=== PATIENT | female | born 1945 | race Caucasian/White ===

== ENCOUNTER 2017-04-03 13:54 | Emergency (ER) | payer MEDICARE, BC ==
[2017-04-03 14:14] VITALS: BP 159/77
[2017-04-03] MEDS ORDERED: Ondansetron 4 MG/2 ML SDV IVPUSH ONE (14:23)
[2017-04-03] MEDS ORDERED: HYDROmorphone 0.5 MG/0.5 ML Syringe IVPUSH ONE ×2 (14:23→15:32)
--- NOTE | 2017-04-03 14:23 | EDM.PDOC ---
ED HPI GENERAL MEDICAL PROBLEM - General Chief Complaint: Trauma Stated Complaint: FALL/HIT HEAD/ARM PAIN/RIB PAIN Time Seen by Provider: 04/03/17 14:18 Source of Information: Reports: Patient, Family (friend) History Limitations: Reports: No Limitations - History of Present Illness INITIAL COMMENTS - FREE TEXT/NARRATIVE: 71-year-old female currently visiting from [facility]. She is out in [place] and well entering a restaurant tripped and fell sideways down to concrete stairs landing hard on her left ribs and striking left side of her head hard on the concrete floor. She was not knocked out but was certainly dazed for a period of time. She also fell on her outstretched left hand and has pain along the ulnar aspect of her hand or wrist radially upped her elbow on the left side. She states she scraped up her left knee but she is able to walk with no pain in either hip or knee or low back. It hurts like active take a deep breath. Of note the patient is on Xarelto because she's had 2 previous TIAs due to intermittent atrial fibrillation. Onset: Today Onset Date: 04/03/17 Onset Time: 13:00 Duration: Hour(s):, Getting Worse Location: Reports: Head, Chest Quality: Reports: Ache, Stabbing (Sharp and stabbing pain in her left chest wall.), Throbbing (Throbbing in her left wrist and forearm.), Other (Pressure throbbing in her left parietal scalp.) Severity: Moderate Improves with: Reports: None Worsens with: Reports: Other (Deep breathing and certain movements.) Context: Reports: Trauma (Fell down to concrete stairs landing on concrete sidewalk striking the left side of her head and her left side of her chest wall in falling on outstretched left hand injuring wrist and forearm. Also scraped up her left knee.) Associated Symptoms: Reports: Chest Pain. Denies: Confusion, Cough, cough w sputum, Diaphoresis, Fever/Chills, Loss of Appetite, Malaise, Nausea/Vomiting, Rash, Shortness of Breath, Syncope, Weakness, Other Treatments HEALTH CARE SPECIALIST: Reports: Other (see below) (None.) Left Hand Pain Score (Numeric/FACES): 7 Left Chest Pain Score (Numeric/FACES): 10 Left Head Pain Score (Numeric/FACES): 10 - Related Data Allergies Allergy/AdvReac Type Severity Reaction Status Date / Time No Known Allergies Allergy Verified 04/03/17 14:07 Home Meds: Home Meds Cholecalciferol (Vitamin D3) [Vitamin D3] 2,000 unit PO DAILY 04/03/17 [History] Flecainide Acetate 50 mg PO BID 04/03/17 [History] Hydrochlorothiazide 25 mg PO DAILY 04/03/17 [History] Losartan [Cozaar] 50 mg PO BID 04/03/17 [History] Metoprolol Succinate [Toprol XL] 50 mg PO BID 04/03/17 [History] Omeprazole Magnesium [Prilosec Otc] 40 mg PO DAILY 04/03/17 [History] Pravastatin [Pravachol] 20 mg PO BEDTIME 04/03/17 [History] Rivaroxaban [Xarelto] 20 mg PO DAILY 04/03/17 [History] oxyCODONE HCl/Acetaminophen [Percocet 5-325 mg Tablet] 1 - 2 each PO Q4H PRN # 20 tablet 04/03/17 [Rx] Past Medical History Cardiovascular History: Reports: Afib (Intermittently. This is the reason that she is on Xarelto.), High Cholesterol, Hypertension Musculoskeletal History: Reports: Neck Pain, Chronic, Osteoarthritis, Other ( See Below) Neurological History: Reports: Headaches, Chronic (2 secondary to being in intermittent atrial fibrillation chronic occipital head is headaches due to degenerative cervical disc disease.), TIA - Past Surgical History GI Surgical History: Reports: Appendectomy Musculoskeletal Surgical History: Reports: Hip Replacement (Left side right side ), Knee Replacement Social & Family History - Living Situation & Occupation Occupation: Retired Review of Systems - Review of Systems Review Of Systems: See Below Constitutional: Reports: No Symptoms Eyes: Reports: No Symptoms Ears: Reports: No Symptoms Nose: Reports: No Symptoms Mouth/Throat: Reports: No Symptoms Respiratory: Reports: Pleuritic Chest Pain. Denies: Shortness of Breath, Wheezing, Cough, Sputum Cardiovascular: Reports: Chest Pain (See history present illness) GI/Abdominal: Reports: No Symptoms Genitourinary: Reports: No Symptoms Musculoskeletal: Reports: Other (Arthritis problems. 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 Small hematoma evident.) Neck: Limited Range of Motion, Tender Lateral (Bilaterally.). No: Non-Tender Respiratory/Chest: No Respiratory Distress, Lungs Clear, No Accessory Muscle Use , Other (Splinting respirations on the left side. No subcutaneous emphysema palpable. She injured her left breast but it's not black and blue yet. Pain from rib 429 on the left side. Pain posterior laterally as well) Cardiovascular: Normal Peripheral Pulses, Regular Rate, Rhythm, No Edema, No Gallop, No Murmur Peripheral Pulses: 1+: Posterior Tibial (L), Posterior Tibial (R), Dorsalis Pedis (L), Dorsalis Pedis (R) GI/Abdominal: Normal Bowel Sounds, Soft, Non-Tender, No Organomegaly, No Distention, Other (Some pain on palpation of left upper costal margin in the distribution of the spleen but no palpable spleen.) Back Exam: Normal Inspection, CVA Tenderness (L) (Ribs under this area are very tender to touch as well.). No: CVA Tenderness (R), Decreased Range of Motion, Muscle Spasm Extremities: Other (Has pain along the ulnar aspect of her hand with swelling pain throughout the wrist that travels towards the elbow in the distribution of the ulna. Her shoulder has full en route post range of motion.) Neurological: Alert, Oriented, CN II-XII Intact, Normal Cognition, Normal Gait Psychiatric: Normal Affect, Normal Mood Skin Exam: Warm, Dry, Intact, Normal Color, Other (Has a superficial abrasion over her left patella. Range of motion of the knee and hip is okay.) ED TRAUMA PROCEDURES - Splinting Left Upper Extremity Splint Site: Below elbow left forearm Pre-Procedure NV Status: Normal Post-Procedure NV Status: Normal Splint Material: Fiberglass Splint Design: Other ( ulnar gutter splint with immobilization of fourth and fifth fingers) Applied & Form Fitted By: Provider Provider Post-Splint Application NV Check: NV Status Normal Complications: No Course - Vital Signs Last Recorded V/S: Last Vital Signs Temp 36.7 C 04/03/17 14:07 Pulse 68 04/03/17 16:20 Resp 16 04/03/17 16:20 BP 159/77 H 04/03/17 14:07 Pulse Ox 98 04/03/17 16:20 - Orders/Labs/Meds Labs: Laboratory Tests 04/03/17 04/03/17 Range/Units 14:45 14:45 WBC 7.00 (3.98-10.04) K/mm3 RBC 4.22 (3.98-5.22) M/mm3 Hgb 13.4 (11.2-15.7) gm/L Hct 40.4 (34.1-44.9) % MCV 95.7 H (79.4-94.8) fl MCH 31.8 (25.6-32.2) pg MCHC 33.2 (32.2-35.5) g/dl RDW Std Deviation 44.0 (36.4-46.3) fL Plt Count 250 (182-369) K/mm3 MPV 9.0 L (9.4-12.3) fl Neutrophils % (Manual) 64 H (40-60) % Band Neutrophils % 0 (0-10) % Lymphocytes % (Manual) 28 (20-40) % Atypical Lymphs % 0 % Monocytes % (Manual) 2 (2-10) % Eosinophils % (Manual) 5 (0.7-5.8) % Basophils % (Manual) 1 (0.1-1.2) Platelet Estimate Adequate RBC Morph Comment Normal Sodium 141 (136-145) mEq/L Potassium 3.0 L (3.5-5.1) mEq/L Chloride 105 (98-107) mEq/L Carbon Dioxide 27 (21-32) mEq/L Anion Gap 12.0 (5-15) BUN 16 (7-18) mg/dL Creatinine 1.3 H (0.55-1.02) mg/dL Est Cr Clr Drug Dosing 40.62 mL/min Estimated GFR (MDRD) 40 (>60) mL/min BUN/Creatinine Ratio 12.3 L (14-18) Glucose 130 H (80-115) mg/dL Calcium 9.1 (8.5-10.1) mg/dL Total Bilirubin 0.4 (0.2-1.0) mg/dL AST 19 (15-37) U/L ALT 26 (14-59) U/L Alkaline Phosphatase 68 (46-116) U/L Total Protein 7.4 (6.4-8.2) g/dl Albumin 3.5 (3.4-5.0) g/dl Globulin 3.9 gm/dL Albumin/Globulin Ratio 0.9 L (1-2) Meds: Medications Discontinued Medications Generic Name Dose Route Start Last Admin Trade Name Freq PRN Reason Stop Dose Admin Hydromorphone HCl 0.5 mg 04/03/17 14:23 04/03/17 14:45 Dilaudid IVPUSH 04/03/17 14:24 0.5 mg ONETIME ONE Administration Hydromorphone HCl 0.5 mg 04/03/17 15:32 04/03/17 15:38 Dilaudid IVPUSH 04/03/17 15:33 0.5 mg ONETIME ONE Administration Sodium Chloride 1,000 mls @ 125 mls/hr 04/03/17 14:30 04/03/17 14:42 Normal Saline IV 125 mls/hr ASDIRECTED RD Administration Iopamidol 100 ml 04/03/17 14:29 04/03/17 14:53 Isovue-300 (61%) IVPUSH 04/03/17 14:30 80 ml ONETIME ONE Administration Ondansetron HCl 4 mg 04/03/17 14:23 04/03/17 14:43 Zofran IVPUSH 04/03/17 14:24 4 mg ONETIME ONE Administration Sodium Chloride 10 ml 04/03/17 14:29 04/03/17 14:53 Saline Flush FLUSH 10 ml ONETIME PRN Administration IV FLUSH - Radiology Interpretation Free Text/Narrative:: 71-year-old lady attends the ED after sustaining a fall while visiting in [place]. States she essentially slept well going into a restaurant falling down to concrete stairs and then striking the left side of her head hard on concrete sidewalk. Injured her left chest wall breast and anterior chest from ribs 4-9. No palpable subcutaneous emphysema or crepitus identified. No entry is diminished of the left side due to splinting respirations. She also injured her left wrist ulnar hand and ulna towards the elbow from the fall. She skinned up her left knee but lower extremities have full range of motion and pelvis is intact. Unfortunately the patient is on Xarelto making her more prone to bleeding. She'll therefore have CT head carried out as a small left-sided parietal hematoma. CT of her chest will be done with IV contrast so that I can make sure her spleen and kidney are okay as well. Suspect possible rib fractures. Suspect possible fracture within the wrist or fifth metacarpal in her hand. - Re-Assessments/Exams Free Text/Narrative Re-Assessment/Exam: 04/03/17 15:13 CT of the head is negative for intracranial bleeding or mass effect and no skull fractures. CT of the chest shows no injury to the lung no rib fractures are identified. Visualized portions of the thoracic spine appear to be normal. X-rays of the left forearm reveal significant osteopenia but no fractures in the long bones. I suspect there is a fracture at the base of the right left fifth metacarpal. She will be placed on Ortho glass ulnar gutter splint. 04/03/17 15:31 radiologist concurs. He feels feels is a corner fracture at the base of the left fifth metacarpal bone. I will therefore place her ulnar gutter splint. We will try get the ring off of her fourth finger. 04/03/17 15:48 placed in an ulnar gutter Orthoplast splint. She will be discharged home on Percocet 5-325 mg tabs one or 2 every 4-6 hours for pain relief. Copies of her x-rays were placed on CD-ROM for her to follow-up with physician when she gets back home. Departure - Departure Time of Disposition: 15:49 Disposition: Home, Self-Care 01 Condition: Fair Clinical Impression: Closed head injury without concussion Qualifiers: Encounter type: initial encounter Qualified Code(s): S09.90XA - Unspecified injury of head, initial encounter Contusion of left chest wall Qualifiers: Encounter type: initial encounter Qualified Code(s): S20.212A - Contusion of left front wall of thorax, initial encounter Contusion of left forearm, initial encounter Qualifiers: Encounter type: initial encounter Qualified Code(s): S50.12XA - Contusion of left forearm, initial encounter Fracture of metacarpal base of left hand, closed Qualifiers: Encounter type: initial encounter Metacarpal bone: fifth - Discharge Information Prescriptions: oxyCODONE HCl/Acetaminophen [Percocet 5-325 mg Tablet] 1 - 2 each PO Q4H PRN # 20 tablet PRN Reason: pain relief. Instructions: Contusion, [id number] Referrals: PCP,Not In Area [Primary Care Provider] - Forms: ED Department Discharge Additional Instructions: Evaluation in the emergency room today after falling with blunt trauma to the left side of her head entire left chest wall and left forearm and left hand. Also scraped to the left anterior knee. CT of the head was found to be within normal limits with no skull fractures and no intracranial bleeding or midline shift. Similarly CT of the chest did not reveal any fractures of the ribs or injury to the underlying lung. Also visualized portions of the spleen and kidneys were normal. X-rays of the left forearm reveal the bones to be quite thin osteopenic. No fractures are identified. X-rays of the left hand and wrist however did reveal a corner fracture of the base of the left fifth metacarpal bone. Therefore your hand and wrist were immobilized in an ulnar gutter Orthoplast splint. This point is to remain in place until follow-up with orthopedic surgeon or hand surgeon on the as you have planned.. May use Percocet tab 02/22/25 usually 1 tablet every 4-6 hours no surgery for pain relief. If these are going to be used for longer than 3 days they do tend to slow the bowel down and make you more prone to constipation. If this is already a problem suggest purchasing some MiraLAX powder 17 g once daily to prevent constipation.
[2017-04-03] MEDS ORDERED: Sodium Chloride 0.9% 10 ML Syringe FLUSH PRN (14:29)
[2017-04-03] MEDS ORDERED: Iopamidol 612 MG/ML 100 ML Bottle IVPUSH ONE (14:29)
[2017-04-03] MEDS ORDERED: Sodium Chloride 0.9% 1,000 ML IV SCH (14:30)
--- NOTE | 2017-04-03 15:24 | CT ---
CT chest Technique: Multiple axial images were obtained from above the dome of the diaphragm inferiorly through the lung bases. Intravenous contrast was utilized. Comparison: No previous chest imaging. Findings: Mediastinum and hilar region show no adenopathy or mass. Atherosclerotic calcification is noted within the aorta. Mild coronary artery calcification is seen. Small portion of the visualized upper abdominal structures are within normal limits. Several calcifications are scattered within the right breast. Calcified granuloma is noted within the left upper lung. Lungs otherwise are clear. No pulmonary contusions are seen. No acute rib fracture is appreciated. Minimal scattered degenerative endplate spurring is seen within the spine. No acute fracture is seen within the spine. Impression: 1. Incidental findings. Nothing acute is appreciated on CT study of the chest. Diagnostic code #2
--- NOTE | 2017-04-03 15:26 | CR ---
Left hand: 4 views of the left hand were obtained. Comparison: No previous study. Mild joint space narrowing is scattered within the DIP and PIP joints as well as within the MCP joint of the thumb and IP joint of the thumb. Mild degenerative change also noted within the CMC joint of the thumb. Small corner fracture is identified within the base of the fifth metacarpal. No additional fracture or other abnormality is appreciated. Impression: 1. Degenerative change as noted above. 2. Small corner fracture believed to be present within the base of the fifth metacarpal. Diagnostic code #3
--- NOTE | 2017-04-03 15:45 | CT ---
Head CT Technique: Multiple axial sections through the brain were obtained. Intravenous contrast was not utilized. Comparison: No previous intracranial imaging. Findings: Ventricles along with basal cisterns and sulci over the convexities appear within normal limits for the patient's age. No abnormal parenchymal densities are seen. Mild atherosclerotic calcification is seen within the carotid siphon and vertebral vessels as well as basilar artery. Bone window settings were reviewed which shows the visualized sinuses to appear clear. No acute calvarial abnormality is appreciated. Impression: 1. Incidental findings as described above. No acute intracranial abnormality is identified on noncontrast head CT. Diagnostic code #2
--- NOTE | 2017-04-04 09:37 | CR ---
Left forearm: Two views of the left forearm were obtained. No fracture or other abnormality is seen. Impression: 1. No abnormality is identified on two-view left forearm study. Diagnostic code #1
== END 2017-04-03 16:20 | disposition home or self-care (01) ==
LOC: JD.ED 13:54
DX: S62.317A Displaced fracture of base of fifth metacarpal bone, left hand, initial encounter for closed fracture (principal); S09.90XA Unspecified injury of head, initial encounter; S00.03XA Contusion of scalp, initial encounter; S20.212A Contusion of left front wall of thorax, initial encounter; S50.12XA Contusion of left forearm, initial encounter; S80.212A Abrasion, left knee, initial encounter; I10 Essential (primary) hypertension; I48.91 Unspecified atrial fibrillation; E78.00 Pure hypercholesterolemia, unspecified; M19.90 Unspecified osteoarthritis, unspecified site; Z90.49 Acquired absence of other specified parts of digestive tract; Z96.642 Presence of left artificial hip joint; Z96.659 Presence of unspecified artificial knee joint; Z79.899 Other long term (current) drug therapy; Z86.73 Personal history of transient ischemic attack (TIA), and cerebral infarction without residual deficits; W10.8XXA Fall (on) (from) other stairs and steps, initial encounter; Y92.511 Restaurant or cafe as the place of occurrence of the external cause
CPT/HCPCS: 29125; 36415; 70450; 71260; 73090; 73130; 80053; 85025; 96361; 96374; 96375; 96376; 99285; J1170; J2405; J7040; J7050; Q9967; 99284-25